=== PATIENT | female | born 2000 | race American Indian/Alaskan Native ===

== ENCOUNTER 2020-07-25 19:56 | Emergency (ER) | payer SELFPAY ==
--- NOTE | 2020-07-25 20:07 | Event Note ---
ED Screening Note Date of service: 07/25/20 Time: 20:03 ED Screening Note: Pleasant 19-year-old female presents emerged department chief complaint of an irregular cycle this month. She states her cycle was a week late and then she started spotting when he normally would have ended followed by some abdominal cramping. She took 2 test which were negative but she is 1 to make sure she was not . She has an IUD in place. She also reports she had to be sent home from work due to having 100.2 fever. She states she had some nasal congestion 2 days and then resolved. Her last temperature was 99.2 at home. This initial assessment/diagnostic orders/clinical plan/treatment(s) is/are subject to change based on patients health status, clinical progression and re- assessment by fellow clinical providers in the ED. Further treatment and workup at subsequent clinical providers discretion. Patient/guardian urged not to elope from the ED as their condition may be serious if not clinically assessed and managed. Initial orders include: urine HCG
[2020-07-25 21:18] LABS: HCG Qualitative,Urine Negative (Negative)
--- NOTE | 2020-07-25 21:24 | Emergency Department Report ---
ED General Adult HPI - General Chief complaint: Fever Stated complaint: FEVER Time Seen by Provider: 07/25/20 20:23 Source: patient Mode of arrival: Ambulatory Limitations: No Limitations - History of Present Illness Initial comments: Pleasant 19-year-old female presents emerged department chief complaint of an irregular cycle this month. She states her cycle was a week late and then she started spotting when he normally would have ended followed by some abdominal cramping. She took 2 test which were negative but she is 1 to make sure she was not . She has an IUD in place. She also reports she had to be sent home from work due to having 100.2 fever. She states she had some nasal congestion 2 days and then resolved. Her last temperature was 99.2 at home. Patient denies any associated nausea,, diarrhea, chest pain, abdominal pain, cough, weakness, shortness of breath, lower extremity edema, chills, night sweats, blurry vision, headache or any other associated symptoms. - Related Data Previous Rx's Medication Instructions Recorded Last Taken Type Fluticasone [Flonase] 1 spray NS QDAY #1 bottle 07/25/20 Unknown Rx Guaifenesin/Pseudoephedrne HCl 1 each PO QDAY #10 tab.er.12h 07/25/20 Unknown Rx [Mucinex D ER 600-60 mg Tablet] Ibuprofen [Motrin 600 MG tab] 600 mg PO Q8H #30 tablet 07/25/20 Unknown Rx Allergies Allergy/AdvReac Type Severity Reaction Status Date / Time No Known Allergies Allergy Unverified 07/25/20 20:24 ED Review of Systems ROS: Stated complaint: FEVER Other details as noted in HPI Comment: All other systems reviewed and negative Constitutional: fever. denies: chills Eyes: denies: eye pain, eye discharge, vision change ENT: denies: ear pain, throat pain Respiratory: denies: cough, shortness of breath, wheezing Cardiovascular: denies: chest pain, palpitations Endocrine: no symptoms reported Gastrointestinal: denies: abdominal pain, nausea, diarrhea Genitourinary: denies: urgency, dysuria, discharge Musculoskeletal: denies: back pain, joint swelling, arthralgia Skin: denies: rash, lesions Neurological: denies: headache, weakness, paresthesias Psychiatric: denies: anxiety, depression Hematological/Lymphatic: denies: easy bleeding, easy bruising ED Past Medical Hx - Past Medical History Previous Medical History?: No - Surgical History Past Surgical History?: No - Social History Smoking Status: Never Smoker Substance Use Type: None - Medications Home Medications: Home Medications Medication Instructions Recorded Confirmed Last Taken Type Fluticasone [Flonase] 1 spray NS QDAY #1 bottle 07/25/20 Unknown Rx Guaifenesin/Pseudoephedrne HCl 1 each PO QDAY #10 tab.er.12h 07/25/20 Unknown Rx [Mucinex D ER 600-60 mg Tablet] Ibuprofen [Motrin 600 MG tab] 600 mg PO Q8H #30 tablet 07/25/20 Unknown Rx ED Physical Exam - General Limitations: No Limitations General appearance: alert, in no apparent distress - Head Head exam: Present: atraumatic, normocephalic - Eye Eye exam: Present: normal appearance, PERRL, EOMI Pupils: Present: normal accommodation - ENT ENT exam: Present: normal exam, normal orophraynx, mucous membranes moist, TM's normal bilaterally - Neck Neck exam: Present: normal inspection, full ROM. Absent: tenderness, meningismus - Respiratory Respiratory exam: Present: normal lung sounds bilaterally. Absent: respiratory distress, wheezes, rales, rhonchi, stridor - Cardiovascular Cardiovascular Exam: Present: regular rate, normal rhythm, normal heart sounds. Absent: systolic murmur, diastolic murmur, rubs, gallop - GI/Abdominal GI/Abdominal exam: Present: soft, normal bowel sounds. Absent: distended, tenderness, guarding, rebound, rigid - Extremities Exam Extremities exam: Present: normal inspection, full ROM, normal capillary refill. Absent: tenderness - Back Exam Back exam: Present: normal inspection, full ROM. Absent: tenderness, CVA tenderness (R), CVA tenderness (L) - Neurological Exam Neurological exam: Present: alert, oriented X3, normal gait - Psychiatric Psychiatric exam: Present: normal affect, normal mood - Skin Skin exam: Present: warm, dry, intact, normal color. Absent: rash ED Medical Decision Making - Medical Decision Making Patient nontoxic no acute distress. Vital signs are stable. Her exam was unremarkable. test was ordered here and negative ruling out ectopic . She had a benign abdominal exam, normal lung sounds making my suspicion for pneumonia unlikely. She had no nuchal rigidity making meningitis unlikely. She had normal TMs, normal throat exam making a HEENT source for fever unlikely. She had no sick contacts. No other symptoms of COVID-19. We will treat her for viral syndrome and recommended outpatient follow-up with her primary care doctor. She understood that she was not checked for COVID-19 today and that prior to returning to work she may need to get a COVID-19 test to complete her 10-day quarantine. She is instructed to return to the emergency department if she develops any change or worsening symptoms. She verbalized understanding the diagnosis, treatment plan and follow-up instructions and all of her questions were answered. - Differential Diagnosis Viral syndrome, influenza, COVID-19 Critical care attestation.: If time is entered above; I have spent that time in minutes in the direct care of this critically ill patient, excluding procedure time. ED Disposition Clinical Impression: Viral sinusitis Disposition: TO HOME OR SELFCARE Is pt being admited?: No Condition: Stable Instructions: Sinusitis, Adult, [id number] Prescriptions: Fluticasone [Flonase] 1 spray NS QDAY #1 bottle Ibuprofen [Motrin 600 MG tab] 600 mg PO Q8H #30 tablet Guaifenesin/Pseudoephedrne HCl [Mucinex D ER 600-60 mg Tablet] 1 each PO QDAY #10 tab.er.12h Referrals: [facility] [Provider Group] - 3-5 Days SARAH BOLAÑOS MD [Staff Physician] - 3-5 Days Forms: Work/School Release Form(ED) Time of Disposition: 21:26
== END 2020-07-25 21:40 | disposition home or self-care (01) ==
LOC: ED 19:56
DX: J01.80 Other acute sinusitis (principal); B97.89 Other viral agents as the cause of diseases classified elsewhere
CPT/HCPCS: 81025; 99283